=== PATIENT | female | born 1955 | race Caucasian/White ===

== ENCOUNTER 2020-09-09 16:20 | Emergency (ER) | payer BC, OTHER ==
[2020-09-09] MEDS ORDERED: Dexamethasone 4 mg/ml Vial SLOW IVP SCH (16:50)
[2020-09-09] MEDS ORDERED: Sodium Chloride 0.9% 1,000 ML IV SCH (17:00)
[2020-09-09] MEDS ORDERED: Amoxicillin/Potassium Clav 875 MG TAB PO SCH (17:00)
[2020-09-09] MEDS ORDERED: Enoxaparin Sodium 40 MG/0.4 ML SYRINGE SC SCH (17:00)
[2020-09-09] MEDS ORDERED: Azithromycin 250 MG TAB PO SCH ×2 (17:00→18:00)
[2020-09-09 17:02] LABS: #Lymphocytes 1.1 thou/uL (1.20-3.40); #Monocytes 0.4 thou/uL (0.11-0.59); #Neutrophils 2.8 thou/uL (1.40-6.50); %Basophils 0.6 % (0.0-1.0); %Lymphocytes 25.8 % (21.0-51.0); %Monocytes 9.4 % (0.0-10.0); %Neutrophils 64.2 % (42.0-75.0); Hemoglobin 12.8 g/dL (12.0-16.0); Mean Corpuscular HGB CONC 31.4 g/dL (32.0-36.0); Mean Corpuscular Volume 85.8 fL (78.0-98.0); Mean Platelet Volume 7.8 fL (7.4-10.4); Platelet Count 188 thou/uL (130-400); Red Blood Cell (RBC) Count 4.76 mill/uL (4.20-5.40); White Blood Cell (WBC) Count 4.4 thou/uL (4.8-10.8)
[2020-09-09] MEDS ORDERED: Enoxaparin Sodium 30 MG/0.3 ML SYRINGE ONE (17:02)
[2020-09-09] MEDS ORDERED: Enoxaparin Sodium 100 MG/ML SYRINGE ONE (17:02)
[2020-09-09] MEDS ORDERED: Dexamethasone 4 mg/ml Vial ONE (17:04)
[2020-09-09] MEDS ORDERED: Amoxicillin/Potassium Clav 875 MG TAB ONE (17:04)
[2020-09-09] MEDS ORDERED: Azithromycin 250 MG TAB ONE (17:04)
[2020-09-09 17:15] LABS: ALT (SGPT) 68 U/L (8-55); AST (SGOT) 57 U/L (5-34); Alkaline Phosphatase 50 U/L (40-110); Anion Gap 16 mmol/L (10-20); BUN (Urea Nitrogen) 11 mg/dL (9.8-20.1); Bilirubin, Total 0.7 mg/dL (0.2-1.2); Calc. Creatinine Clearance 0 mL/min (70-130); Calcium 7.2 mg/dL (7.8-10.44); Carbon Dioxide 23 mmol/L (23-31); Chloride 101 mmol/L (98-107); Estimated GFR-MDRD 62; Globulin 3.3 g/dL (2.4-3.5); Glucose 96 mg/dL (80-115); Potassium 3.2 mmol/L (3.5-5.1); Protein, Total 7.3 g/dL (6.0-8.3); Sodium 137 mmol/L (136-145)
[2020-09-09 17:40] LABS: CKMB 0.7 ng/mL (0-6.6)
[2020-09-09] MEDS ORDERED: Acetaminophen 500 MG TAB ONE (18:03)
--- NOTE | 2020-09-09 18:38 | RAD ---
PORTABLE CHEST: 09/09/20 An AP portable film at 1653 is presented with no prior films available for comparison. The heart is probably normal in size for age and body habitus. There is no vascular congestion, edema , or pleural effusion. There is a linear streak or two in each lung which could be atelectasis, but near one of these streak s in the left mid lung zone there is a vague patchy area. I cannot exclude an early infiltrate here. I would wonder about another one in the right mid lung zone. If the patient had any signs and symptom s of infection, then COVID should be included in the differential diagnosis. IMPRESSION: Suspicion of some patchy air space disease, more so in the left lung than right. Correlate with clini suzi presentation and follow-up as needed. Code T POS: HOME
== END 2020-09-09 20:45 | disposition short-term general hospital (02) ==
LOC: BURERS 16:20
DX: R06.02 Shortness of breath (principal); I10 Essential (primary) hypertension; Z79.899 Other long term (current) drug therapy; Z20.828 Contact with and (suspected) exposure to other viral communicable diseases
CPT/HCPCS: 71045; 80053; 82553; 83605; 84484; 85025; 85379; 86140; 87040; 96372; 96374; J1100; J1650